=== PATIENT | male | born 1970 | race Caucasian/White ===

== ENCOUNTER 2017-04-13 11:10 | Emergency (ER) | payer MEDICARE ==
[~2017-04-13] VITALS: Ht 175.3 cm; Wt 99.7 kg
[~2017-04-13 11:10] MED LIST: MOTRIN800 MG PO; NORCO 5/3251 TABLET PO; TESSALON PERLE100 MG PO
[2017-04-13] MEDS ORDERED: ULTRAM50 MG PO (13:20)
[2017-04-13] MEDS ORDERED: FLEXERIL10 MG PO (13:20)
[2017-04-13 13:43] VITALS: BP 139/89
== END 2017-04-13 13:44 | disposition home or self-care (01) ==
LOC: EME 11:10
DX: S46.912A Strain of unspecified muscle, fascia and tendon at shoulder and upper arm level, left arm, initial encounter (principal); M62.838 Other muscle spasm; F17.200 Nicotine dependence, unspecified, uncomplicated
CPT/HCPCS: 93005; 99281; 99284

== ENCOUNTER 2017-11-30 02:21 | Emergency (ER) | payer SELFPAY ==
[~2017-11-30] VITALS: Ht 175.3 cm; Wt 98.0 kg
[~2017-11-30 02:21] MED LIST changes: +FLEXERIL10 MG PO; +TESSALON200 MG PO; +ULTRAM50 MG PO; +VENTOLIN HFA18 GM IH
[2017-11-30 03:06] LABS: HEMATOCRIT 44.3 % (38.0-50.0); HEMOGLOBIN 15.8 G/DL (12.5-16.6); MCH 30.3 PG (29.0-34.0); MCHC 35.7 G/DL (30.0-36.0); MCV 84.9 FL (86-99); PLATELET COUNT 351 K/uL (156-360); RBC DIS.WIDTH-CV 13.1 % (11.8-14.6); RBC DIS.WIDTH-SD 40.5 % (39-53); RED BLOOD COUNT 5.22 M/uL (4.00-5.50); WHITE BLOOD COUNT 8.7 K/uL (4.1-10.2)
[2017-11-30 03:16] LABS: ALBUMIN 4.3 g/dL (3.2-4.8); CHLORIDE 104 mEq/L (99-109); POTASSIUM 3.9 mEq/L (3.7-5.4)
[2017-11-30 03:17] LABS: SODIUM 137 mEq/L (136-147)
[2017-11-30 03:19] LABS: GLUCOSE 170 mg/dL (70-99); TOTAL PROTEIN 6.7 g/dL (6.4-8.3)
[2017-11-30 03:21] LABS: TOTAL BILIRUBIN 0.3 mg/dL (0.0-1.0)
[2017-11-30 03:22] LABS: ALKALINE PHOSPHATASE 56 IU/L (3-129); CREATININE 0.9 mg/dL (0.6-1.3); GFR ESTIMATE (CALCULATED) > 59 mL/min/ (58.99-99999)
[2017-11-30 03:24] LABS: AST (GOT) 28 IU/L (2-34); UREA NITROGEN (BUN) 16 mg/dL (9-23)
[2017-11-30 03:25] LABS: ALT (GPT) 52 IU/L (3-49)
[2017-11-30] MEDS ORDERED: MEDROL DOSEPAK4 MG PO (03:38)
[2017-11-30] MEDS ORDERED: ATARAX,VISTARIL50 MG PO (03:38)
[2017-11-30 03:59] VITALS: BP 161/99
== END 2017-11-30 04:01 | disposition home or self-care (01) ==
LOC: EME 02:21
PROVIDERS: Physician Assistant
DX: R21 Rash and other nonspecific skin eruption (principal)
CPT/HCPCS: 80053; 85027; 99281; 99284; J7512; Q0177

== ENCOUNTER 2018-06-03 18:19 | Emergency (ER) | payer SELFPAY ==
[~2018-06-03] VITALS: Ht 175.3 cm; Wt 96.6 kg
[~2018-06-03 18:19] MED LIST changes: +ATARAX,VISTARIL50 MG PO; +MEDROL DOSEPAK4 MG PO
[2018-06-03] MEDS ORDERED: MOTRIN800 MG PO (20:03)
[2018-06-03 20:15] VITALS: BP 131/92
== END 2018-06-03 20:16 | disposition home or self-care (01) ==
LOC: EME 18:19
DX: S46.912A Strain of unspecified muscle, fascia and tendon at shoulder and upper arm level, left arm, initial encounter (principal); W18.30XA Fall on same level, unspecified, initial encounter; Y93.01 Activity, walking, marching and hiking
CPT/HCPCS: 73030; 99281; 99284; J1885